=== PATIENT | male | born 1990 | race Caucasian/White ===

== ENCOUNTER 2019-02-08 20:29 | Emergency (ER) | payer BC, OTHER ==
--- NOTE | 2019-02-08 22:36 | EDM.PDOC ---
ED HPI GENERAL MEDICAL PROBLEM - General Chief Complaint: Upper Extremity Injury/Pain Stated Complaint: ALLERGIC REACTION Time Seen by Provider: 02/08/19 20:42 Source of Information: Reports: Patient, Family History Limitations: Reports: No Limitations - History of Present Illness INITIAL COMMENTS - FREE TEXT/NARRATIVE: 28 yo comes in s/p rotator cuff surgery on 01/31/19 for new development of rash and itching x 1 day. He also did have Fever of 100.3 earlier today, chills and some nausea. He is not currently on any antibiotic. He was given Toradol and Percocet after surgery with no adverse reaction and stopped taking the Toradol 2 days ago. No history of allergies. He has not tried any new medications. He does complain of some chafing under his arm and is generally uncomfortable. No other complaints at this time. Next orthopedic appointment is 02/11/19 for follow up [address] Dr. Hadley in [place]. PCP is Dr. Colvin. Right Shoulder Pain Score (Numeric/FACES): 3 - Related Data Allergies Allergy/AdvReac Type Severity Reaction Status Date / Time No Known Allergies Allergy Verified 02/08/19 20:52 Home Meds: Home Meds Acetaminophen/oxyCODONE [Percocet 325-5 MG] 5 - 325 mg PO Q6H 02/08/19 [History] Dextroamphetamine/Amphetamine [Adderall] 25 mg PO DAILY 02/08/19 [History] Doxycycline [Vibramycin] 100 mg PO BID 10 Days #20 tab 02/08/19 [Rx] Ranitidine [Zantac] 150 mg PO BID 02/08/19 [History] Triamcinolone Acetonide [Triamcinolone Acetonide 0.5% Oint] 15 gm .XX QID #1 tube 02/08/19 [Rx] Past Medical History Gastrointestinal History: Reports: GERD Psychiatric History: Reports: ADD - Past Surgical History Musculoskeletal Surgical History: Reports: Shoulder Surgery Other Musculoskeletal Surgeries/Procedures:: left ankle achilles tendon repair Social & Family History - Tobacco Use Smoking Status *Q: Never Smoker - Caffeine Use Caffeine Use: Reports: Energy Drinks, Soda - Recreational Drug Use Recreational Drug Use: No Review of Systems - Review of Systems Review Of Systems: ROS reveals no pertinent complaints other than HPI. ED EXAM, GENERAL - Physical Exam Exam: See Below Exam Limited By: No Limitations General Appearance: Alert, WD/WN, Mild Distress Eye Exam: Bilateral Eye: EOMI, Normal Inspection, PERRL Ears: Normal External Exam, Hearing Grossly Normal Nose: Normal Inspection, Normal Mucosa, No Blood Throat/Mouth: Normal Inspection, Normal Lips, Normal Teeth, Normal Gums, Normal Oropharynx, Normal Voice, No Airway Compromise Head: Atraumatic, Normocephalic Neck: Normal Inspection, Supple, Non-Tender, Full Range of Motion Respiratory/Chest: No Respiratory Distress, Lungs Clear, Normal Breath Sounds, No Accessory Muscle Use, Chest Non-Tender Cardiovascular: Normal Peripheral Pulses, Regular Rate, Rhythm, No Edema, No Gallop, No JVD, No Murmur, No Rub Peripheral Pulses: 4+: Radial (L), Radial (R) Back Exam: Normal Inspection, Full Range of Motion, NT Extremities: Arm Pain (R arm), Limited Range of Motion (s/p rotator cuff surgery , currently in sling), Increased Warmth (R arm), Redness (R arm) Psychiatric: Normal Affect, Normal Mood Skin Exam: Warm, Dry Course - Vital Signs Last Recorded V/S: Last Vital Signs Temp 98.8 F 02/08/19 20:42 Pulse 75 02/08/19 20:42 Resp 20 02/08/19 20:42 BP 119/84 02/08/19 20:42 Pulse Ox 97 02/08/19 20:42 - Orders/Labs/Meds Orders: Active Orders 24 hr Category Date Time Status CULTURE BLOOD [BC] Stat Lab 02/08/19 23:00 Received CULTURE BLOOD [BC] Stat Lab 02/08/19 23:08 Received Triamcinolone Acetonide [Triamcinolone Acetonide 0.5%] Med 02/08/19 23:45 Active 1 gm TOP BID cefTRIAXone [Rocephin] 2 gm Med 02/08/19 23:00 Active Sodium Chloride 0.9% [Normal Saline] 100 ml IV Q24H Blood Culture x2 Reflex Set [OM.PC] Stat Oth 02/08/19 22:45 Ordered Medication Orders Ceftriaxone Sodium 2 gm/ (Sodium Chloride) 100 mls @ 200 mls/hr IV Q24H [facility] Last Admin: 02/08/19 23:01 Dose: 200 mls/hr Triamcinolone Acetonide (Triamcinolone Acetonide 0.5%) 1 gm TOP BID BILL Labs: Laboratory Tests 02/08/19 02/08/19 02/08/19 Range/Units 23:00 23:00 23:00 WBC 8.97 (4.23-9.07) K/mm3 RBC 5.26 (4.63-6.08) M/mm3 Hgb 15.7 (13.7-17.5) gm/L Hct 45.4 (40.1-51.0) % MCV 86.3 (79.0-92.2) fl MCH 29.8 (25.7-32.2) pg MCHC 34.6 (32.2-35.5) g/dl RDW Std Deviation 39.4 (35.1-43.9) fL Plt Count 275 (163-337) K/mm3 MPV 10.3 (9.4-12.3) fl Neut % (Auto) 64.0 (34.0-67.9) % Lymph % (Auto) 24.6 (21.8-53.1) % [place] % (Auto) 8.9 (5.3-12.2) % Eos % (Auto) 2.2 (0.8-7.0) Baso % (Auto) 0.2 (0.1-1.2) % Neut # (Auto) 5.73 H (1.78-5.38) K/mm3 Lymph # (Auto) 2.21 (1.32-3.57) K/mm3 [place] # (Auto) 0.80 (0.30-0.82) K/mm3 Eos # (Auto) 0.20 (0.04-0.54) K/mm3 Baso # (Auto) 0.02 (0.01-0.08) K/mm3 Sodium 142 (136-145) mEq/L Potassium 4.4 (3.5-5.1) mEq/L Chloride 104 (98-107) mEq/L Carbon Dioxide 28 (21-32) mEq/L Anion Gap 14.4 (5-15) BUN 15 (7-18) mg/dL Creatinine 1.0 (0.7-1.3) mg/dL Est Cr Clr Drug Dosing 126.73 mL/min Estimated GFR (MDRD) > 60 (>60) mL/min BUN/Creatinine Ratio 15.0 (14-18) Glucose 98 (74-106) mg/dL Lactic Acid 0.6 (0.4-2.0) mmol/L Calcium 9.4 (8.5-10.1) mg/dL Total Bilirubin 0.7 (0.2-1.0) mg/dL AST 32 (15-37) U/L ALT 92 H (16-63) U/L Alkaline Phosphatase 67 (46-116) U/L C-Reactive Protein 0.9 (<1.0) mg/dL Total Protein 7.5 (6.4-8.2) g/dl Albumin 3.8 (3.4-5.0) g/dl Globulin 3.7 gm/dL Albumin/Globulin Ratio 1.0 (1-2) Meds: Medications Generic Name Dose Route Start Last Admin Trade Name Freq PRN Reason Stop Dose Admin Ceftriaxone Sodium 2 gm/ 100 mls @ 200 mls/hr 02/08/19 23:00 02/08/19 23:01 Sodium Chloride IV 200 mls/hr Q24H BILL Administration Triamcinolone Acetonide 1 gm 02/08/19 23:45 Triamcinolone Acetonide 0.5% TOP BID BILL Discontinued Medications Generic Name Dose Route Start Last Admin Trade Name Freq PRN Reason Stop Dose Admin Betamethasone Valerate 1 gm 02/08/19 23:34 Valisone 0.1% Crm TOP 02/08/19 23:35 ONETIME ONE Ceftriaxone Sodium 2 gm 02/08/19 22:45 Rocephin IVPUSH Q24H BILL Doxycycline Hyclate 200 mg 02/08/19 23:39 Vibramycin PO 02/08/19 23:40 ONETIME ONE - Re-Assessments/Exams Free Text/Narrative Re-Assessment/Exam: 02/08/19 22:46 I have ordered CBC, CMP, CRP, Lactic Acid, Blood cultures Will give Rocephin 2g IV push 02/08/19 23:53 CBC, CMP, CRP, LA all WNL Will send home with PO Doxycycline 100mg BID x 10 days. F/u with PCP and orthopedic. Departure - Departure Time of Disposition: 23:53 Disposition: Home, Self-Care 01 Condition: Fair Clinical Impression: Wound infection after surgery, Contact dermatitis - Discharge Information *PRESCRIPTION DRUG MONITORING PROGRAM REVIEWED*: Not Applicable *COPY OF PRESCRIPTION DRUG MONITORING REPORT IN PATIENT GERHARD: Not Applicable Prescriptions: Doxycycline [Vibramycin] 100 mg PO BID 10 Days #20 tab Triamcinolone Acetonide [Triamcinolone Acetonide 0.5% Oint] 15 gm .XX QID #1 tube Instructions: Cast or Splint Care, Adult, [id number], Wound Infection, Easy- to-Read, Contact Dermatitis, [id number], Surgical Site Infections FAQs - SAUL Referrals: Kulwinder Colvin MD [Primary Care Provider] - Forms: ED Department Discharge Additional Instructions: You were seen in the ED today for rash after your rotator cuff surgery. It appears that you may have developed two different things: infection and contact dermatitis due to the sling. You were started on antibiotics while here and will be sent home with a prescription for Doxycycline twice daily for 10 days for coverage of infection and a steroid cream, Triamcinolone, for the contact dermatitis. Also recommend wearing shirt to cover areas of contact dermatitis. For the chafing, recommend Vit A &D ointment. Recommend follow up with primary care provider and orthopedic (keep appointment for February 11). Please return to ED if new or worsening symptoms. - My Orders Last 24 Hours: My Active Orders 02/08/19 22:45 Blood Culture x2 Reflex Set [OM.PC] Stat 02/08/19 23:00 CULTURE BLOOD [BC] Stat cefTRIAXone [Rocephin] 2 gm Sodium Chloride 0.9% [Normal Saline] 100 ml IV Q24H 02/08/19 23:08 CULTURE BLOOD [BC] Stat 02/08/19 23:45 Triamcinolone Acetonide [Triamcinolone Acetonide 0.5%] 1 gm TOP BID - Assessment/Plan Last 24 Hours: My Active Orders 02/08/19 22:45 Blood Culture x2 Reflex Set [OM.PC] Stat 02/08/19 23:00 CULTURE BLOOD [BC] Stat cefTRIAXone [Rocephin] 2 gm Sodium Chloride 0.9% [Normal Saline] 100 ml IV Q24H 02/08/19 23:08 CULTURE BLOOD [BC] Stat 02/08/19 23:45 Triamcinolone Acetonide [Triamcinolone Acetonide 0.5%] 1 gm TOP BID
[2019-02-08] MEDS ORDERED: cefTRIAXone 2 GM Vial IVPUSH SCH (22:45)
[2019-02-08] MEDS ORDERED: cefTRIAXone 2 GM in Sodium Chloride 0.9% 100 ML IV SCH (23:00)
[2019-02-08] MEDS ORDERED: Betamethasone Valerate 0.1% Crm 15 GM Tube TOP ONE (23:34)
[2019-02-08] MEDS ORDERED: Doxycycline 100 MG Cap PO ONE (23:39)
[2019-02-08] MEDS ORDERED: Triamcinolone Acetonide 0.5% Crm 15 GM Tube TOP SCH (23:45)
[2019-02-09] MEDS ORDERED: Hydrocortisone 1% Crm 30 GM Tube TOP ONE (00:16)
== END 2019-02-09 00:08 | disposition home or self-care (01) ==
LOC: SUPCPDRO 20:29 → JD.ED 20:29
DX: T81.49XA Infection following a procedure, other surgical site, initial encounter (principal); L25.9 Unspecified contact dermatitis, unspecified cause; K21.9 Gastro-esophageal reflux disease without esophagitis; Z79.899 Other long term (current) drug therapy
CPT/HCPCS: 36415; 80053; 83605; 85025; 86140; 87040; 96365; 99283; A9270; J0696; J7030

== ENCOUNTER 2021-07-12 16:16 | Emergency (ER) | payer BC ==
[2021-07-12] MEDS ORDERED: Sodium Chloride 0.9% 10 ML Syringe FLUSH PRN (16:44)
[2021-07-12] MEDS ORDERED: Sodium Chloride 0.9% 1,000 ML IV STA (16:44)
--- NOTE | 2021-07-12 17:05 | EDM.PDOC ---
ED HPI GENERAL MEDICAL PROBLEM - General Chief Complaint: General Stated Complaint: COVID POS BODY ACHES Time Seen by Provider: 07/12/21 16:29 Source of Information: Reports: Patient History Limitations: Reports: No Limitations - History of Present Illness INITIAL COMMENTS - FREE TEXT/NARRATIVE: The patient presents with possible dehydration. He was diagnosed with COVID 19 last . Two week ago he got and then had to go to [place] for business. He thinks he may have got the virus in [place]. He had a fever and chills a few days ago. That is better now. He still has body aches, generalized weakness, malaise, and diarrhea. He denies having a cough or shortness of breath. He has no nausea or vomiting. He has no medical problems. He has been drinking lots of fluids but he still feels dehydrated. Onset: Gradual Duration: Week(s): (1) Location: Reports: Generalized Quality: Reports: Ache Severity: Moderate Improves with: Reports: None Worsens with: Reports: None Associated Symptoms: Reports: Fever/Chills, Loss of Appetite. Denies: Chest Pain, Cough, Headaches, Nausea/Vomiting, Shortness of Breath Generalized Pain Score (Numeric/FACES): 4 - Related Data Allergies Allergy/AdvReac Type Severity Reaction Status Date / Time No Known Allergies Allergy Verified 07/12/21 16:31 Home Meds: Home Meds . 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 Neurological History: Reports: Migraines Psychiatric History: Reports: ADD, ADHD Endocrine/Metabolic History: Reports: Obesity/BMI 30+ Hematologic History: Reports: None Immunologic History: Reports: None Oncologic (Cancer) History: Reports: None Dermatologic History: Reports: None - Past Surgical History Musculoskeletal Surgical History: Reports: Shoulder Surgery Other Musculoskeletal Surgeries/Procedures:: left ankle achilles tendon repair Social & Family History - Tobacco Use Tobacco Use Status *Q: Never Tobacco User - Caffeine Use Caffeine Use: Reports: None - Recreational Drug Use Recreational Drug Use: No ED ROS GENERAL - Review of Systems Review Of Systems: See Below Constitutional: Reports: Fever, Chills, Malaise, Weakness, Fatigue HEENT: Reports: No Symptoms Respiratory: Reports: No Symptoms Cardiovascular: Reports: No Symptoms Endocrine: Reports: No Symptoms GI/Abdominal: Reports: No Symptoms : Reports: No Symptoms Musculoskeletal: Reports: No Symptoms ED EXAM, GENERAL - Physical Exam Exam: See Below Exam Limited By: No Limitations General Appearance: Alert, No Apparent Distress Ears: Normal External Exam Nose: Normal Inspection Head: Atraumatic, Normocephalic Neck: Normal Inspection Respiratory/Chest: No Respiratory Distress, Lungs Clear, Normal Breath Sounds Cardiovascular: Regular Rate, Rhythm, No Edema, No Murmur GI/Abdominal: Soft, Non-Tender, No Organomegaly, No Mass Back Exam: Normal Inspection Extremities: Normal Inspection Course - Vital Signs Last Recorded V/S: Last Vital Signs Temp 98.9 F 07/12/21 17:32 Pulse 73 07/12/21 17:32 Resp 18 07/12/21 17:32 BP 109/72 07/12/21 17:32 Pulse Ox 94 L 07/12/21 17:32 - Orders/Labs/Meds Orders: Active Orders 24 hr Category Date Time Status Peripheral IV Care [RC] . DIRECTED Care 07/12/21 16:44 Active Sodium Chloride 0.9% [Saline Flush] Med 07/12/21 16:44 Active 10 ml FLUSH ASDIRECTED PRN Peripheral IV Insertion Adult [OM.PC] Stat Oth 07/12/21 16:44 Ordered Medication Orders Sodium Chloride (Sodium Chloride 0.9% 10 Ml Syringe) 10 ml FLUSH ASDIRECTED PRN PRN Reason: Keep Vein Open Last Admin: 07/12/21 17:10 Dose: 10 ml Documented by: ALBERTA Labs: Laboratory Tests 07/12/21 07/12/21 Range/Units 17:10 17:10 WBC 2.91 L (4.23-9.07) K/mm3 RBC 5.23 (4.63-6.08) M/mm3 Hgb 15.7 (13.7-17.5) gm/dl Hct 45.8 (40.1-51.0) % MCV 87.6 (79.0-92.2) fl MCH 30.0 (25.7-32.2) pg MCHC 34.3 (32.2-35.5) g/dl RDW Std Deviation 41.0 (35.1-43.9) fL Plt Count 147 L D (163-337) K/mm3 MPV 10.7 (9.4-12.3) fl Neut % (Auto) 51.2 (34.0-67.9) % Lymph % (Auto) 37.5 (21.8-53.1) % [place] % (Auto) 11.0 (5.3-12.2) % Eos % (Auto) 0 L (0.8-7.0) Baso % (Auto) 0.3 (0.1-1.2) % Neut # (Auto) 1.49 L (1.78-5.38) K/mm3 Lymph # (Auto) 1.09 L (1.32-3.57) K/mm3 [place] # (Auto) 0.32 (0.30-0.82) K/mm3 Eos # (Auto) 0.00 L (0.04-0.54) K/mm3 Baso # (Auto) 0.01 (0.01-0.08) K/mm3 Manual Slide Review Abnormal smear Sodium 143 (136-145) mEq/L Potassium 4.3 (3.5-5.1) mEq/L Chloride 106 (98-107) mEq/L Carbon Dioxide 28 (21-32) mEq/L Anion Gap 13.3 (5-15) BUN 10 (7-18) mg/dL Creatinine 1.0 (0.7-1.3) mg/dL Est Cr Clr Drug Dosing 123.30 mL/min Estimated GFR (MDRD) > 60 (>60) mL/min BUN/Creatinine Ratio 10.0 L (14-18) Glucose 87 (70-99) mg/dL Calcium 7.9 L (8.5-10.1) mg/dL Total Bilirubin 0.3 (0.2-1.0) mg/dL AST 51 H (15-37) U/L ALT 83 H (16-63) U/L Alkaline Phosphatase 72 (46-116) U/L Total Protein 7.2 (6.4-8.2) g/dl Albumin 3.4 (3.4-5.0) g/dl Globulin 3.8 gm/dL Albumin/Globulin Ratio 0.9 L (1-2) Meds: Medications Generic Name Dose Route Start Last Admin Trade Name Kleber PRN Reason Stop Dose Admin Sodium Chloride 10 ml 07/12/21 16:44 07/12/21 17:10 Sodium Chloride 0.9% 10 Ml Syringe FLUSH 10 ml ASDIRECTED PRN Administration Keep Vein Open Discontinued Medications Generic Name Dose Route Start Last Admin Trade Name Kleber PRN Reason Stop Dose Admin Sodium Chloride 1,000 mls @ 1,000 mls/hr 07/12/21 16:44 07/12/21 17:11 Normal Saline IV 07/12/21 17:43 1,000 mls/hr .BOLUS STA Administration - Re-Assessments/Exams Free Text/Narrative Re-Assessment/Exam: 07/12/21 17:06 I ordered an IV NS bolus and labs. 07/12/21 18:35 His WBC is low at 2.91. His AST is elevated at 51. His ALT is elevated at 83. He feels better. I will discharge him home. Departure - Departure Time of Disposition: 18:40 Disposition: Home, Self-Care 01 Condition: Good Clinical Impression: COVID-19, Dehydration - Discharge Information *PRESCRIPTION DRUG MONITORING PROGRAM REVIEWED*: Not Applicable *COPY OF PRESCRIPTION DRUG MONITORING REPORT IN PATIENT GERHARD: Not Applicable Referrals: Kulwinder Cristobal MD [Primary Care Provider] - 1 Week Forms: ED Department Discharge Additional Instructions: Drink plenty of fluids. Take tylenol or motrin as needed for fever or pain. Follow up with Dr Cristobal. Please return if you are worse. Sepsis Event Note (ED) - Focused Exam Vital Signs: Vital Signs Temp Pulse Resp BP Pulse Ox 07/12/21 17:32 98.9 F 73 18 109/72 94 L 07/12/21 16:27 97.1 F 74 16 129/80 98 - My Orders Last 24 Hours: My Active Orders 07/12/21 16:44 Peripheral IV Care [RC] . DIRECTED Sodium Chloride 0.9% [Saline Flush] 10 ml FLUSH ASDIRECTED PRN Peripheral IV Insertion Adult [OM.PC] Stat - Assessment/Plan Last 24 Hours: My Active Orders 07/12/21 16:44 Peripheral IV Care [RC] . DIRECTED Sodium Chloride 0.9% [Saline Flush] 10 ml FLUSH ASDIRECTED PRN Peripheral IV Insertion Adult [OM.PC] Stat
== END 2021-07-12 18:44 | disposition home or self-care (01) ==
LOC: JD.ED 16:16
DX: U07.1 COVID-19 (principal); E86.0 Dehydration; E66.9 Obesity, unspecified; Z68.30 Body mass index [BMI] 30.0-30.9, adult
CPT/HCPCS: 36415; 80053; 85025; 99284; J7030; 99283